=== PATIENT | female | born 1985 | race Caucasian/White ===

== ENCOUNTER 2021-03-23 12:15 | Emergency (ER) | payer BC, SELFPAY ==
--- NOTE | ~2021-03-23 | XR_ITS ---
EXAMINATION: XR shoulder RT min 2V EXAM DATE: 03/23/2021 13:07 INDICATION: Pain radiating down RT arm; no injury. TECHNIQUE: The following right shoulder projections obtained: frontal projection with internal rotati on, frontal projection with external rotation, Grashey, and axillary (4+ views). There is no prior s tudy for comparison. FINDINGS: No evidence of right shoulder rotator cuff calcific tendinosis. Unremarkable right perez ohumeral and acromioclavicular joints. There are no acute fractures or dislocations identified. Ther e is no subcutaneous gas. The soft tissue is unremarkable. There are no radiopaque foreign bodies. IMPRESSION: 1. Unremarkable right shoulder exam. Reviewed, dictated and finalized at location A.
--- NOTE | ~2021-03-23 | XR_ITS ---
EXAMINATION: XR cervical spine 4-5V EXAM DATE: 03/23/2021 13:08 INDICATION: Pain Rt side neck, numbness, cold Rt 1st and 2nd fingers. TECHNIQUE: Cervical spine frontal, lateral, lateral swimmers, and open-mouth odontoid projections. There is no prior study for comparison. FINDINGS: Mild disc disease at C5-6 and C6-7. The vertebral body and disc heights are otherwise well maintained. Evidence of mild cervical facet arthropathy and lower cervical uncovertebral joint arthr opathy. The lung apices are clear. The odontoid process is intact. The lateral masses of C1 line up with C2. Prevertebral soft tissue and pre-dens space are within normal limits. There is mild reversal of the normal cervical lordosis which may be positional or spasm. IMPRESSION: 1. Mild cervical spondylosis. 2. Mild reversal of normal cervical lordosis. Reviewed, dictated and finalized at location A.
[2021-03-23 12:27] VITALS: BP 117/59; PULSE 68; RESP 20; TEMP 37; O2SAT 100
--- NOTE | 2021-03-23 12:41 | ED.UPPEXIN ---
HPI - Extremity Injury (Upper) General Chief Complaint: Extremity Injury, Upper Stated Complaint: shoulder pain Time Seen by Provider: 03/23/21 12:42 Source: patient, RN notes reviewed and old records reviewed Mode of arrival: ambulatory Limitations: no limitations History of Present Illness HPI narrative: 36 year old [facility] one week duration of pain to her right scapular region which radiates to posterior shoulder and down her right arm. Patient states that for the past 2 days she has been experiencing some tingling sensation down her right arm and into her right hand with intermittent numbness to thumb and index finger. Patient states no known injury to her shoulder, arm or upper back noted. Patient states that her is discomfort is 2/10, has not taken any OTC medication for pain. MD complaint: injury to: right, shoulder and arm (no known injury) Onset (ago): week(s) (1) Related Data Home Medications Medication Instructions Recorded Confirmed dextroamphetamine-amphetamine PO 03/23/21 [Adderall XR] Allergies Allergy/AdvReac Type Severity Reaction Status Date / Time No Known Allergies Allergy Mild Verified 04/18/11 15:46 Review of Systems Review of Systems: Narrative: CONSTITUTIONAL: Denies fever, chills, or sweats. EYES: Denies visual changes, redness, or discharge. ENT: Denies rhinorrhea, congestion, sore throat, or otalgia. CARDIOVASCULAR: Denies chest pain, palpitations, or edema. RESPIRATORY: Denies cough or dyspnea. GASTROINTESTINAL: Denies abdominal pain, nausea, vomiting, or diarrhea. GENITOURINARY: Denies dysuria or hematuria. SKIN: Denies rash or itching. MUSCULOSKELETAL: positive upper back pain,right posterior shoulder pain radiating down right arm, or myalgia. NEUROLOGIC: Denies headache, numbness, or weakness. PSYCHIATRIC: Positive history of anxiety or depression. 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 trimester Panic attacks Surgical History Surgical History (Updated 03/23/21 @ 13:02 by Heidi Johnson NP) Chauncey teeth extracted Family History Family History (Updated 03/25/21 @ 16:08 by Heidi Johnson NP) Grandparent Diabetes mellitus Arthritis Cerebrovascular accident Heart disease Mother Hypertension Heart disease Social History Social History (Updated 03/25/21 @ 16:06 by Heidi Johnson NP) Smoking status: Never smoker Alcohol intake: current Alcohol use details: social Substance use: never Living arrangements: with family Gender identity (if verbalized by the patient): Female Comments At time of signature, agree with nursing past medical, surgical, social and family history. There is no relevant family history pertinent to the presenting complaint Exam Narrative: Exam Narrative: GENERAL: Well-appearing, well-nourished, and in no acute distress. HEAD: Normocephalic, atraumatic. EYES: PERRLA and EOMI. ENT: Nares clear, no rhinorrhea or epistaxis. Mucous membranes moist. NECK: Supple. no lymphadenopathy CHEST: Clear to auscultation. No respiratory distress.SAO2 100% on room air HEART: Regular rate and rhythm. No murmur heard. Normal peripheral pulses. ABDOMEN: Soft, nontender, nondistended, normal active bowel sounds. EXTREMITIES: Normal range of motion. No edema present, pain to right scapula area, right posterior shoulder and down right arm into her hand with decrease sensation to right thumb and index finger, no increase in pain with movement of right arm. SKIN: Warm, dry, no rash. NEURO: No focal deficits. Alert and oriented x3. Course Vital Signs Vital signs: Vital Signs Temperature 37.0 C 03/23/21 12:27 Pulse Rate 68 03/23/21 12:27 Respiratory Rate 20 03/23/21 12:27 Blood Pressure 117/59 L 03/23/21 12:27 Pu
== END 2021-03-23 13:51 | disposition home or self-care (01) ==
PROVIDERS: Emergency Provider Registered Nurse
DX: M54.6 Pain in thoracic spine (principal); M25.511 Pain in right shoulder; M47.812 Spondylosis without myelopathy or radiculopathy, cervical region
CPT/HCPCS: 72050; 73030; 99204; G0463